=== PATIENT | male | born 1955 | race Caucasian/White ===

== ENCOUNTER → 2020-11-02 | Outpatient (CLI) | payer MEDICARE ==
[~2020-11-02] MED LIST: ASPI81TA45 PO; ATOR20TA37 PO; CLIN300C9 PO; CLOM50TA17 PO; FINA5TAB4 PO; GUAI400T46 PO; LEVO100T5 PO; METR500T PO; MULT-658 PO; SULF-23 PO; TERA1CAP3 PO
== END | disposition home or self-care (01) ==
LOC: STAR 07:52
PROVIDERS: ATTEND Surgery
DX: Z01.818 Encounter for other preprocedural examination (principal); R94.31 Abnormal electrocardiogram [ECG] [EKG]; Z20.822 Contact with and (suspected) exposure to COVID-19
CPT/HCPCS: 93005; U0003; U0005

== ENCOUNTER 2020-11-08 06:13 | Day surgery (SDC) | payer MEDICARE ==
[~2020-11-08] VITALS: Ht 175.3 cm; Wt 88.2 kg
[2020-11-08] MEDS ORDERED: BUPIVACAINE/PF 0.5% ONE (06:45)
[2020-11-08] MEDS ORDERED: EPINEPHRINE 1 MG/ML, 1ML ONE (06:45)
[2020-11-08 06:53] VITALS: BP 124/80
[2020-11-08] MEDS ORDERED: LACTATED RINGERS 1,000 ML IV SCH (07:00)
[2020-11-08] MEDS ORDERED: CHLORHEXIDINE 15 ML UDC PO ONE (07:00)
[2020-11-08 07:17] VITALS: BP 124/80
[2020-11-08] MEDS ORDERED: MIDAZOLAM 1 MG/ML, 2ML ONE (08:07)
[2020-11-08] MEDS ORDERED: FENTANYL PF 250 MCG/5ML ONE (08:07)
[2020-11-08] MEDS ORDERED: GLYCOPYRROLATE 0.2MG/1ML, 5ML ONE (08:50)
[2020-11-08] MEDS ORDERED: PROPOFOL 10 MG/ML, 20ML ONE (08:50)
[2020-11-08] MEDS ORDERED: SUGAMMADEX 200 MG/2 ML IVPush ONE (08:50)
[2020-11-08] MEDS ORDERED: ROCURONIUM 10MG/ML,5ML ONE (08:50)
[2020-11-08] MEDS ORDERED: ONDANSETRON 2MG/ML, 2ML ONE (08:50)
[2020-11-08] MEDS ORDERED: NEOSTIGMINE 1 MG/ML, 10ML ONE (08:50)
[2020-11-08] MEDS ORDERED: SUCCINYLCHOLINE 20 MG/ML, 10ML ONE (08:50)
[2020-11-08] MEDS ORDERED: CEFAZOLIN 1,000 MG ONE (08:50)
[2020-11-08] MEDS ORDERED: DIAZEPAM 5 MG/ML, 2ML IVPush PRN (09:00)
[2020-11-08] MEDS ORDERED: MEPERIDINE/PF 25MG/0.5ML IVPush PRN (09:00)
[2020-11-08] MEDS ORDERED: FENTANYL PF 100 MCG/2ML IV PRN (09:00)
[2020-11-08] MEDS ORDERED: HYDROmorphone 2 MG/ML, 1ML IVPush PRN (09:00)
[2020-11-08] MEDS ORDERED: OXYcodone 5 MG/5 ML ORAL.SOL UDC PO PRN (09:00)
[2020-11-08] MEDS ORDERED: PROMETHAZINE 25 MG/ML, 1ML IV PRN (09:00)
[2020-11-08] MEDS ORDERED: hydrALAzine 20 MG/ML, 1ML IV PRN (09:00)
[2020-11-08] MEDS ORDERED: KETOROLAC 30 MG/1 ML IV PRN (09:00)
[2020-11-08] MEDS ORDERED: ALBUTEROL SULFATE 2.5 MG/3 ML NPPB PRN (09:00)
[2020-11-08] MEDS ORDERED: LABETALOL 5MG/ML, 20ML IV PRN (09:00)
[2020-11-08] MEDS ORDERED: ACETAMINOPHEN 325 MG TABLET PO PRN (09:00)
[2020-11-08] MEDS ORDERED: HYDR-2214 PO (09:10)
[2020-11-08] MEDS ORDERED: KETOROLAC 30 MG/1 ML ONE (09:37)
== END 2020-11-08 12:50 | disposition home or self-care (01) ==
LOC: OUT 06:13
PROVIDERS: ATTEND Surgery
DX: K42.9 Umbilical hernia without obstruction or gangrene (principal); E03.9 Hypothyroidism, unspecified; E78.5 Hyperlipidemia, unspecified; Z79.899 Other long term (current) drug therapy; Z98.890 Other specified postprocedural states; Z79.82 Long term (current) use of aspirin
CPT/HCPCS: 49585; C1781; J0171; J0330; J0690; J1885; J2250; J2405; J2704; J2710; J3010; J7120